=== PATIENT | male | born 1990 | race Caucasian/White ===

== ENCOUNTER 2017-03-30 17:28 | Inpatient (IN) | payer MEDICAID ==
[~2017-03-30] VITALS: Ht 175.3 cm; Wt 68.9 kg
[2017-03-30 17:37] VITALS: BP_SYST 144
[2017-03-30] MEDS ORDERED: NACL 0.9% 1,000 ML IV ONE (17:45)
[2017-03-30] MEDS ORDERED: ONDANSETRON HCL 4 MG/2 ML VIAL IVP ONE (17:45)
[2017-03-30] MEDS ORDERED: LORazepam 2 MG/ML VIAL (FOR ER USE) IVP ONE (17:45)
[2017-03-30] MEDS ORDERED: FOLIC ACID 1 MG, THIAMINE HCL 100 MG, MAGNESIUM SULFATE 1 GM, MVI 10 ML in NACL 0.9% 1,... IV ONE (18:00)
[2017-03-30 18:02] LABS: HEMOGLOBIN 15.7 g/dL (14.0-18.0); MEAN CORPUSCULAR HEMOGLOBIN 33 pg (27-31); MEAN CORPUSCULAR HGB CONC 33 % (32-36); MEAN CORPUSCULAR VOLUME 99 fL (79.0-98.0); PLATELET COUNT (AUTO) 272 K/uL (130-430); RED BLOOD CELL COUNT(AUTO) 4.73 MIL/uL (4.2-6.2); RED CELL DISTRIBUTION WIDTH 12.9 % (9.0-15.0); WHITE BLOOD COUNT (AUTO) 22.5 K/uL (4.8-10.8)
[2017-03-30 18:08] LABS: CALCIUM 9.2 mg/dL (8.4-11.0); CREATININE 1.27 mg/dL (0.55-1.30); POTASSIUM 3.1 mmol/L (3.5-5.1)
[2017-03-30 18:11] LABS: PROTHROMBIN TIME 11.3 SECS (9.5-12.5)
[2017-03-30 18:15] LABS: ATYPICAL LYMPHOCYTES % 0 % (0-0); BAND % (MANUAL) 2 % (0-6); BASOPHILS % (MANUAL) 0 % (0-2); EOSINOPHILS % (MANUAL) 0 % (0-7); LYMPHOCYTES % (MANUAL) 5 % (20-46); MONOCYTES % (MANUAL) 6 % (0-11)
[2017-03-30 18:21] LABS: ALBUMIN 5.2 g/dL (3.4-4.8); TOTAL BILIRUBIN 1.3 mg/dL (0.0-1.0); TOTAL PROTEIN, SERUM 8.5 g/dL (6.4-8.3)
[2017-03-30] MEDS ORDERED: POTASSIUM CHLORIDE 40 MEQ in NS 250 ML IV ONE (18:45)
[2017-03-30 19:01] LABS: LIPASE 90 U/L (73-393)
[2017-03-30 19:20] LABS: ALCOHOL, BLOOD < 3 mg/dL (<10)
[2017-03-30 19:30] LABS: BLOOD GAS PH 7.363 (7.350-7.450)
[2017-03-30 19:31] LABS: BLOOD GAS BASE EXCESS -2.4 mmol/L (-3.0-3.0); BLOOD GAS COHb% 0.1 % (0.5-1.5); BLOOD GAS HHB 5.1 % (0.0-6.0); BLOOD O2Hb% 94.6 % (94.0-97.0)
[2017-03-30 19:41] LABS: BILIRUBIN,URINE NEGATIVE (NEGATIVE); BLOOD, URINE NEGATIVE (NEGATIVE); CLARITY/URINE CLEAR (CLEAR); COLOR,URINE YELLOW (YELLOW); GLUCOSE,URINE NEGATIVE (NEGATIVE); KETONES,URINE 3+ (NEGATIVE); LEUKOCYTE ESTERASE ,URINE NEGATIVE (NEGATIVE); NITRITE, URINE NEGATIVE (NEGATIVE); PH,URINE 6.5 (5.0-8.0); PROTEIN URINE NEGATIVE (NEGATIVE); UROBILINOGEN,URINE 0.2 (0.2-1.0)
[2017-03-30 19:51] LABS: BACTERIA,URINE FEW /HPF (None Seen); MUCUS,URINE 1+ /LPF (None Seen); RBC,URINE NONE SEEN /HPF (0-3); WBC,URINE 0-3 /HPF (0-3)
[2017-03-30 19:52] LABS: BARBITURATE, URINE NEGATIVE (NEG <=200); BENZODIAZEPINE, URINE POSITIVE (NEG <=150); METHAMPHETAMINES SCREEN,URINE NEGATIVE (NEG <=500); URINE AMPHETAMINE NEGATIVE (NEG <=500); URINE METHADONE NEGATIVE (NEG <=200)
[2017-03-30 19:53] LABS: CANNABINOID, URINE POSITIVE (NEG <=50); COCAINE, URINE POSITIVE (NEG <=150); OPIATE, URINE NEGATIVE (NEG <=100); PHENCYCLIDINE SCREEN,URINE NEGATIVE (NEG <=25); UR TRICYCLIC ANTIDEPRESSANTS NEGATIVE (NEG <=300); URINE OXYCODONE SCREEN NEGATIVE (NEG <=100); URINE PROPOXYPHENE SCREEN NEGATIVE (NEG <=300)
[2017-03-30] MEDS ORDERED: cefTRIAXone 2 GM VIAL ONE (20:39)
[2017-03-30 21:19] VITALS: BP_SYST 134
[2017-03-30] MEDS ORDERED: ACETAMINOPHEN 325 MG TABLET PO PRN (22:45)
[2017-03-30] MEDS ORDERED: LORazepam 2 MG/ML VIAL IVP PRN (22:45)
[2017-03-30] MEDS ORDERED: ONDANSETRON HCL 4 MG/2 ML VIAL IVP PRN (22:45)
[2017-03-30] MEDS: KCL 20 mEq in D5/0.45NS 1000mL 1,000 ML IV SCH (23:24)
[2017-03-30] MEDS: PANTOPRAZOLE SODIUM 40 MG TAB PO SCH (23:31)
[2017-03-31 01:14] VITALS: BP_SYST 118
[2017-03-31 03:53] VITALS: BP_SYST 120
[2017-03-31 08:20] VITALS: BP_SYST 138
[2017-03-31] MEDS ORDERED: FOLIC ACID 1 MG TABLET PO SCH (09:00)
[2017-03-31] MEDS ORDERED: THIAMINE HCL 100 MG TABLET PO SCH (09:00)
[2017-03-31] MEDS ORDERED: PANTOPRAZOLE SODIUM 40 MG TAB ONE (09:49)
[2017-03-31 09:52] LABS: BASOPHILS # (AUTO) 0.2 K/uL (0.0-0.2); EOSINOPHILS % (AUTO) 0.2 % (0.0-4.0); HEMOGLOBIN 13.9 g/dL (14.0-18.0); LYMPHOCYTES # (AUTO) 1.8 K/uL (1.0-5.5); LYMPHOCYTES % (AUTO) 14.9 % (20.5-51.5); MEAN CORPUSCULAR HEMOGLOBIN 34 pg (27-31); MEAN CORPUSCULAR HGB CONC 34 % (32-36); MEAN CORPUSCULAR VOLUME 99 fL (79.0-98.0); MONOCYTES # (AUTO) 0.9 K/uL (0.0-1.0); MONOCYTES % (AUTO) 7.8 % (1.7-9.3); NEUTROPHILS # (AUTO) 8.9 K/uL (1.8-7.7); NEUTROPHILS % (AUTO) 75.1 % (40.0-70.0); PLATELET COUNT (AUTO) 215 K/uL (130-430); RED BLOOD CELL COUNT(AUTO) 4.13 MIL/uL (4.2-6.2); RED CELL DISTRIBUTION WIDTH 12.9 % (9.0-15.0)
[2017-03-31] MEDS: PANTOPRAZOLE SODIUM 40 MG TAB PO SCH (09:53)
[2017-03-31 09:54] LABS: WHITE BLOOD COUNT (AUTO) 11.8 K/uL (4.8-10.8)
[2017-03-31] MEDS: KCL 20 mEq in D5/0.45NS 1000mL 1,000 ML IV SCH (10:06)
[2017-03-31 10:10] LABS: CALCIUM 8.2 mg/dL (8.4-11.0); CREATININE 1.13 mg/dL (0.55-1.30); POTASSIUM 3.8 mmol/L (3.5-5.1); TOTAL BILIRUBIN 0.8 mg/dL (0.0-1.0); TOTAL PROTEIN, SERUM 7.5 g/dL (6.4-8.3)
[2017-03-31 12:32] VITALS: BP_SYST 139
[2017-03-31 18:36] VITALS: BP_SYST 135
[2017-03-31 18:45] VITALS: BP_SYST 135
== END 2017-03-31 19:04 | disposition home or self-care (01) | DRG 241 ==
LOC: SED 17:28 → STU 21:01
PROVIDERS: ADMIT Internal Medicine; ATTEND Internal Medicine
DX: K29.20 Alcoholic gastritis without bleeding (principal); E87.6 Hypokalemia; F19.10 Other psychoactive substance abuse, uncomplicated; D72.829 Elevated white blood cell count, unspecified; F12.10 Cannabis abuse, uncomplicated; F10.10 Alcohol abuse, uncomplicated; Z87.891 Personal history of nicotine dependence
CPT/HCPCS: 36415; 36600; 71010; 80053; 80307; 81000-TC; 82803-TC; 83605; 83690-TC; 83735-TC; 85007; 85025; 85027; 85610-TC; 85730-TC; 87040-TC; 87086; 93005; 96365; 96366; 96368; 99285; G0482; J0696; J2060; J2405; J3411; J3475; J3480; J3490; J7030; J7050; J7060

== ENCOUNTER 2020-08-16 17:44 | Emergency (ER) | payer MEDICAID, OTHER ==
[~2020-08-16] VITALS: Ht 177.8 cm; Wt 70.3 kg
[2020-08-16 17:47] VITALS: BP_SYST 163
--- NOTE | 2020-08-16 17:48 | NUR ---
PT TO REMAIN IN ER LOBBY UNTIL ER BED BECOMES AVAILABLE.
--- NOTE | 2020-08-16 17:50 | NUR ---
ER Dr. RIOS at bedside examining patient.
--- NOTE | 2020-08-16 18:00 | NUR ---
PT AAO AND AMBULATORY REPORTING LEFT SIDED DULL CP, 5/10, RADIATES TO THE LEFT SIDE OF BACK.
[2020-08-16 18:48] LABS: BASOPHILS # (AUTO) 0.1 K/uL (0.0-0.2); BASOPHILS % (AUTO) 0.7 % (0.0-2.0); EOSINOPHILS # (AUTO) 0.3 K/uL (0.0-0.4); EOSINOPHILS % (AUTO) 2.9 % (0.0-4.0); HEMATOCRIT 45.6 % (36-54); HEMOGLOBIN 15.7 g/dL (14.0-18.0); LYMPHOCYTES # (AUTO) 3.3 K/uL (1.0-5.5); LYMPHOCYTES % (AUTO) 36.1 % (20.5-51.5); MEAN CORPUSCULAR HEMOGLOBIN 36 pg (27-31); MEAN CORPUSCULAR HGB CONC 35 % (32-36); MEAN CORPUSCULAR VOLUME 103 fL (79.0-98.0); MONOCYTES # (AUTO) 0.5 K/uL (0.0-1.0); MONOCYTES % (AUTO) 5.1 % (1.7-9.3); NEUTROPHILS % (AUTO) 55.2 % (40.0-70.0); PLATELET COUNT (AUTO) 242 K/uL (130-430); RED BLOOD CELL COUNT(AUTO) 4.43 MIL/uL (4.2-6.2); RED CELL DISTRIBUTION WIDTH 13.3 % (9.0-15.0); WHITE BLOOD COUNT (AUTO) 9.1 K/uL (4.8-10.8)
[2020-08-16 18:55] LABS: ANION GAP 9 (5-15); CALCIUM 8.9 mg/dL (8.4-11.0); CHLORIDE 103 mmol/L (98-107); CREATININE 0.83 mg/dL (0.55-1.30); GLUCOSE 100 mg/dL (70-99); POTASSIUM 4.1 mmol/L (3.5-5.1); SODIUM SERUM 140 mmol/L (136-145); UREA NITROGEN, BLOOD 15 mg/dL (8-21)
[2020-08-16 18:57] LABS: GFR AFRICAN AMERICAN 139 mL/min (>90)
--- NOTE | 2020-08-16 20:15 | NUR ---
Patient given written and verbal discharge instructions and verbalizes understanding. DR. GABRIEL PORRAS MD discussed with patient the results and treatment provided. Patient in stable condition. ID arm band removed. Patient educated on pain management and to follow up with PMD. Pain Scale 0/10. Opportunity for questions provided and answered.
[2020-08-16 20:18] VITALS: BP_SYST 163
== END 2020-08-16 20:15 | disposition home or self-care (01) ==
LOC: SED 17:44
DX: R07.89 Other chest pain (principal); F12.90 Cannabis use, unspecified, uncomplicated; F14.90 Cocaine use, unspecified, uncomplicated; F15.90 Other stimulant use, unspecified, uncomplicated; Z87.891 Personal history of nicotine dependence
CPT/HCPCS: 36415; 71046-TC; 80048; 84484; 85025; 93005; 99285